=== PATIENT | female | born 1980 | race Caucasian/White ===

== ENCOUNTER → 2018-07-21 | Day surgery (SDC) | payer OTHER ==
--- NOTE | 2018-07-21 13:43 | OP ---
DATE OF OPERATION: 07/21/2018 PREOPERATIVE DIAGNOSIS: Abnormal right mammography. POSTOPERATIVE DIAGNOSIS: Abnormal right mammography. PROCEDURE: Right stereotactic needle biopsy with clip. SURGEON: Angela Cordon MD ANESTHESIA: Local. COMPLICATIONS: None. This is a sterile procedure. INDICATIONS FOR PROCEDURE: Patient presented with a screening mammogram that noted cluster of microcalcifications in the right retroareolar location. Recommendation was for needle biopsy. The procedure was discussed with all her questions answered. PROCEDURE IN DETAIL: Patient brought to [facility] in [place], laid prone on the Lor[place] table. Using the cranial approach, the calcifications in the retroareolar right breast were identified. A sterile prep obtained. A target was chosen. There was a positive stroke margin. Using Betadine and 1% lidocaine, a 10-gauge Suros device was used to take several cores from this area. The specimens showed cores with calcifications. These were handled using calcification protocol. A clip was deployed in the area. Hemostasis assured with direct pressure. The incision was closed with Steri-Strips. She tolerated the procedure well and [facility] good [facility]. ANGELA CORDON M.D. [id number]
--- NOTE | 2018-07-23 16:26 | PATH ---
Surgical Pathology Report Patient Name: PARI HATFIELD [facility]. Rec. #: [id number] /Age/Gender: 1980 (Age: 37) / F Account: [id number] Location: [facility] Taken: 07/21/2018 Received: 07/21/2018 Reported: 07/23/2018 Physicians: Angela Escobedo M.D. Specimen(s) Received A: RIGHT BREAST SPECIMEN WITH CALCIFICATIONS B: RIGHT BREAST SPECIMEN WITHOUT CALCIFICATIONS Clinical History Nonpalpable lesion Mammographic findings: Microcalcification, suspicious Final Diagnosis A. BREAST, RIGHT, WITH CALCIFICATIONS, STEREOTACTIC CORE BIOPSY: FOCAL LOBULAR CARCINOMA IN SITU (LCIS), CLASSICAL TYPE. FIBROCYSTIC CHANGES INCLUDING STROMAL FIBROSIS, CYSTIC APOCRINE METAPLASIA, MICROCYSTS, AND ASSOCIATED MICROCALCIFICATIONS. B. BREAST, RIGHT, WITHOUT CALCIFICATIONS, STEREOTACTIC CORE BIOPSY: BENIGN BREAST PARENCHYMA WITH FIBROCYSTIC CHANGES. Comment: Immunohistochemical stain performed and interpreted at [facility] show LCIS is negative for E-cadherin, supporting the above diagnosis. Electronically Signed Jacque Oquendo M.D. Gross Description A. Received in formalin labeled "right breast with calcifications," are 5 hammond-yellow, cylindrical portions of fibroadipose tissue ranging from 1.4-2.3 cm in length and averaging 0.3 cm in diameter. The specimen is submitted in toto in one cassette. B. Received in formalin labeled "right breast without calcifications," are 4 hammond-yellow, cylindrical portions of fibroadipose tissue ranging from 1.8-2.1 cm in length and averaging 0.3 cm in diameter. The specimens are submitted in toto in one cassette. Time to formalin fixation: 7 minutes Total formalin fixation time: Approximately 30 hours. DL/07/22/2018 saudi07/22/2018
== END | disposition home or self-care (01) ==
LOC: FMAMMOTONE 10:53
PROVIDERS: ATTEND Surgery
PROC: 0HBT3ZX Excision of Right Breast, Percutaneous Approach, Diagnostic (ICD-10-PCS; principal; 2018-07-21)
DX: D05.01 Lobular carcinoma in situ of right breast (principal); N60.31 Fibrosclerosis of right breast; N60.11 Diffuse cystic mastopathy of right breast; R92.8 Other abnormal and inconclusive findings on diagnostic imaging of breast
CPT/HCPCS: 19081; 88305-TC; 88342-TC

== ENCOUNTER → 2018-08-20 | Day surgery (SDC) | payer OTHER ==
[2018-08-19 12:01] VITALS: BMI 30.1
[~2018-08-20] MED LIST: LACTATED RINGERS SOLUTION 1,000 ML IV SCH; MIDAZOLAM HCL 2 MG/2 ML SINGLE DOSE VIAL ONE; ONDANSETRON 4 MG/2 ML VIAL IVPUSH PRN; PROPOFOL 20 ML ONE; SUCCINYLCHOLINE CHLORIDE 200 MG/10 ML VIAL ONE; ceFAZolin SODIUM 1 GM VIAL ONE; oxyCODONE HCL 5 MG TABLET PO PRN
[2018-08-20 17:34] VITALS: BP 100/68; PULSE 76; TEMP 97.8
--- NOTE | 2018-08-21 09:00 | OP ---
DATE OF OPERATION: 08/20/2018 PREOPERATIVE DIAGNOSIS: Right breast atypia. POSTOPERATIVE DIAGNOSIS: Right breast atypia. PROCEDURE: Right breast wire-localized lumpectomy. SURGEON: Angela Escobedo MD ANESTHESIA: General. ESTIMATED BLOOD LOSS: Minimal. COMPLICATIONS: None. This was a sterile procedure. INDICATIONS FOR PROCEDURE: Patient presented with a screening mammography that noted calcifications in the upper right breast. A needle biopsy showed fibrocystic change and a focus of atypical lobular hypoplasia. My recommendation was an excision of the area to make sure there is no further upgrade in the lesion. The procedure of a right breast wire-localized lumpectomy was discussed, and all the questions answered. PROCEDURE IN DETAIL: Patient was brought to [facility] in [place], taken to breast imaging where wire was used to localize the clip in the upper right breast. She was then brought to the operating room, and after the induction of general anesthesia and IV antibiotics, the right breast was prepped and draped in the usual sterile fashion. The area in the upper right breast was anesthetized with 1% lidocaine without epinephrine. A periareolar incision was made in the upper right breast, and wire was used as a guide to get down to the area of interest. This was excised en bloc, tacked with long suture lateral, short suture superior, sent for specimen radiograph. Hemostasis was assured with direct pressure. Hemostasis was assured with electrocautery. The specimen radiograph showed the clip and wire to be intact within the specimen. This was then sent to Pathology for permanent section. Once hemostasis was assured, the parenchyma approximated with interrupted 2-0 Vicryl. Skin approximated with interrupted 3-0 Vicryl and running 4-0 Prolene. A sterile dressing with Tegaderm and 4x4s was applied. She tolerated the procedure well, was extubated on the operating room table and taken to recovery in good condition. Raisa [id number]
--- NOTE | 2018-08-23 15:54 | PATH ---
Surgical Pathology Report Patient Name: PARI HATFIELD Med. Rec. #: [id number] /Age/Gender: 1980 (Age: 37) / F Account: [id number] Location: [facility] Taken: 08/20/2018 Received: 08/20/2018 Reported: 08/23/2018 Physicians: Angela Escobedo M.D. Specimen(s) Received RIGHT BREAST MASS Clinical History Right breast atypia Final Diagnosis RIGHT BREAST, LUMPECTOMY: BREAST TISSUE WITH FOCAL ATYPICAL LOBULAR HYPERPLASIA. FIBROCYSTIC CHANGES INCLUDING ADENOSIS, STROMA FIBROSIS, CYSTIC APOCRINE METAPLASIA, MICROCYSTS, AND ASSOCIATED MICROCALCIFICATIONS. REACTIVE CHANGES AT PRIOR BIOPSY SITE PRESENT. Electronically Signed Tamara Cohen M.D. Gross Description Received fresh on an AccuGrid, labeled with the patient's name and indicated on the requisition to be a right breast lumpectomy, is a 4.1 x 3.4 x 1.8 cm. hammond-yellow, irregular, portion of fibroadipose tissue with a needle localization wire present. There is a short suture marking the superior aspect and a long suture marking the lateral aspect, per the surgeon. There is no skin or nipple present. The specimen is inked as follows: superior and lateral blue; inferior green; medial yellow; anterior red; deep black. The specimen is serially sectioned from superior to inferior. Sectioning reveals abundant dense, white, firm fibrous tissue. There is a alfred metallic biopsy clip identified. No definitive mass is identified. The specimen is entirely and sequentially submitted from superior to inferior in 10 cassettes (biopsy clip in cassette 4; one bisected section each in cassettes 5/6, 7/8). Total formalin fixation time: Approximately 26 hours DL08/20/2018/08/20/2018
== END | disposition home or self-care (01) ==
LOC: JASU-SURG 09:15
PROVIDERS: ATTEND Surgery
PROC: 0HBT0ZZ Excision of Right Breast, Open Approach (ICD-10-PCS; principal; 2018-08-20 12:00)
DX: N60.11 Diffuse cystic mastopathy of right breast (principal); N64.82 Hypoplasia of breast; N62 Hypertrophy of breast
CPT/HCPCS: 19281; 19301; 84703; 88307-TC; 94760